=== PATIENT | male | born 1985 | race Caucasian/White ===

== ENCOUNTER 2021-08-30 19:08 | Emergency (ER) | payer MEDICAID, SELFPAY ==
[2021-08-30 20:19] VITALS: BP 152/78; PULSE 108; RESP 16; TEMP 36; O2SAT 97; BMI 25.1
--- NOTE | 2021-08-30 20:53 | RAD_ITS ---
INDICATION: chest pain EXAMINATION/TECHNIQUE: X-RAY - XR Chest 1 View COMPARISON: None. FINDINGS: LINES/DEVICES: None. LUNGS: Lung volumes are increased bilaterally with slight asymmetric elevation right hemidiaphragm compared to left. No appreciable pulmonary hyperlucency or interstitial changes to further suggesting emphysema. There is no pneumothorax. No airspace opacity or abnormal interstitial pattern. MEDIASTINUM AND CARDIOVASCULAR STRUCTURES: Normal size and contour of the cardiomediastinal silhouette. No evidence of pulmonary vascular congestion. BONES AND SOFT TISSUES: No abnormality within limits of the exam. RAD/Chest 1 View (Portable) IMPRESSION: 1. Increased lung volumes bilaterally with asymmetric elevation right hemidiaphragm compared to the left. Otherwise normal exam. Electronically Signed: Mike Tyler DO at 21:42 EDT Tel , Service support ,
--- NOTE | 2021-08-30 20:53 | EKG12_ITS ---
Test Reason : DYSRHYTHMIA Blood Pressure : / mmHG Vent. Rate : 101 BPM Atrial Rate : 101 BPM P-R Int : 120 ms QRS Dur : 082 ms QT Int : 348 ms P-R-T Axes : 067 060 063 degrees QTc Int : 451 ms Sinus tachycardia Nonspecific T wave abnormality Abnormal ECG Confirmed by ELINOR FISCHER, KRISSY ([id number]), content editor EDILIA AC ([id number]) on 09/04/2021 10:07:33 A M Referred By: BUD Confirmed By:JAVON ALDRICH MD
--- NOTE | 2021-08-30 20:58 | EDS_ITS ---
HPI History of Present Illness Chief Complaint: Anxiety Informant: patient Narrative Narrative: Patient reports 5 minutes chest pain 90 minutes prior to arrival. Reports increasing stress. Currently resolved. History of paroxysmal A. fib. He was on Xarelto for 90 days. Tobacco history. States family history uncles MIs in their 40s. Denies hypertension diabetes hypercholesterolemia. Denies recent travel surgeries or immobilizations. No history of PE or DVT. Denies any cough symptoms. Denies suicidal homicidal ideations. Currently back to normal. Prior similar symptoms: Yes PFSH PFSH Medical History Palpitations Home Medications NK 08/30/21 [History Last Taken Unknown] Allergy/AdvReac Type Severity Reaction Status Date / Time No Known Allergies Allergy Verified 08/30/21 19:09 Social History Smoking Status: Current every day smoker tobacco type: cigarettes ROS ROS ED Constitutional Constitutional ED: Denies chills, fever(s) or sweats Eyes Eyes: Denies change in vision ENT ENT ED: Denies dysphagia or sore throat Cardiovascular Cardiovascular: Reports chest pain; Denies leg edema, palpitations or racing heartbeat Respiratory/Chest Respiratory/Chest: Denies cough, dyspnea or dyspnea on exertion Gastrointestinal Gastrointestinal: Denies abdominal pain, diarrhea, nausea or vomiting Genitourinary Genitourinary ED: Denies dysuria, hematuria or urinary frequency Musculoskeletal Musculoskeletal: Denies back pain, extremity pain or neck pain Integumentary Denies rash or wounds Neurologic Neurologic: Denies headache(s), paresthesias or weakness EXAM Physical Exam Const Vital Signs: 08/30/21 20:19 08/30/21 21:21 Temperature 96.8 F L Temperature Source Temporal Pulse Rate 108 H 102 H Respiratory Rate 16 18 Blood Pressure 152/78 H Blood Pressure Mean 102 Pulse Ox 97 Oxygen Delivery Method Room Air Room Air Positive well nourished and well developed General Appearance ED: well developed and NAD HEENT Reports moist mucous membranes normocephalic and atraumatic Eyes PERRL, EOMs intact bilaterally and conjunctivae normal General Eye ED: Yes normal appearance of both eyes Neck no lymphadenopathy and supple General: Negative for tenderness Chest Wall Chest: Negative for tenderness Resp normal respiratory effort and normal air movement Effort and Inspection: symmetric chest movement; Negative for respiratory dis tress Cardio regular rate, regular rhythm and no murmurs Peripheral Pulses: pulses 2+ throughout GI normal to inspection, nondistended, normoactive bowel sounds and non-tender Palpation: Negative for guarding or rebound tenderness present Back/Spine no CVA tenderness and no thoracic nor lumbar tenderness Extremity normal to inspection General Extremety ED: Negative for edema or tenderness General Extremity: Negative for edema Neuro oriented x3 and no sensory deficits noted Sensorium / Orientation: awake and alert Skin no rashes or lesions noted and no wounds MDM MDM MDM Narrative Medical decision making narrative: Patient with 5-minute transient chest pains. EKG sinus rhythm no acute changes. Cardiac work-up troponin negative x2. Pot assium 3.2 orally replaced. Remained symptom-free throughout. Heart score is a 2. Patient slightly tachycardic denied any dyspnea symptoms for concerns for PE. Is given follow-up as an outpatient with return precautions. All questions were answered. Lab Data Attestation: I reviewed the patient's lab results. Labs: Laboratory Results - last 24 hr 08/30/21 08/30/21 08/30/21 21:10 21:10 23:10 WBC 8.7 RBC 4.90 Hgb 14.5 Hct 42.4 MCV 86.5 MCH 29.6 MCHC 34.2 RDW Std Deviation 39.2 RDW Coeff of Mata 12.5 Plt Count 384 MPV 8.2 Immature Gran % (Auto) 0.300 Neut % (Auto) 71.8 H Lymph % (Auto) 21.0 [place] % (Auto) 6.1 Eos % (Auto) 0.1 Baso % (Auto) 0.7 Absolute Neuts (auto) 6.3 Absolute Lymphs (auto) 1.83 Nucleated RBC % 0 Sodium 136 Potassium 3.2 L Chloride 103 Carbon Dioxide 28.0 Anion Gap 5 BUN 11 Creatinine 0.79 Estim Creat Clear Calc 141.65 Est GFR (MDRD) Af Amer 144 Est GFR (MDRD) Non-Af 119 BUN/Creatinine Ratio 13.9 Glucose 117 H Calcium 8.9 Troponin I High Sens 5 6 Radiography Chest X-Ray - ED: 1 View, Read by ED Physician and Read by Radiologist Diagnostic Testing: Clinical Impression(s) from Imaging Studies Chest X-Ray 08/30/21 20:53 IMPRESSION: 1. Increased lung volumes bilaterally with asymmetric elevation right hemidiaphragm compared to the left. Otherwise normal exam. Electronically Signed: Mike Tyler DO at 21:42 EDT Tel , Service support , EKG Initial EKG: Attestation: I personally reviewed and interpreted this EKG as follows: Comments: Sinus rate of 101, no ST or T wave changes. Discharge Plan Triage Chief Complaint: Anxiety ED Provider: Nahum Israel Dx/Rx/DC Orders Clinical Impression: Chest pain, Acute hypokalemia Instructions: ED Chest Pain, Uncertain Cause Prescriptions: No Action NK RF: 0 Primary Care Provider: Care Physician,No Primary Referrals: Kayla Recinos [NON-STAFF] - 3-5 Days Care Physician,No Primary [Primary Care Provider] - Disposition Disposition: Home, Self Care
[2021-08-30 21:20] LABS: Absolute Lymphocyte Count 1.83 X10^3/uL (0.83-4.51); Absolute Neutrophil Count 6.3 X10^3/uL (2.0-7.7); Basophil# 0.06 X10^3/uL; Basophil% 0.7 % (0-1); Eosinophil# 0.01 X10^3/uL; Eosinophils% 0.1 % (0-5); Hematocrit 42.4 % (40-54); Hemoglobin 14.5 g/dL (13.0-16.5); Lymphocyte # 1.83 X10^3/ul (0.83-4.51); Mean Corp Hgb Conc 34.2 g/dL (32-36); Mean Corpuscular Hgb 29.6 pg (27.0-32.0); Mean Corpuscular Volume 86.5 fL (80-94); Mean Platelet Vol. 8.2 fl (6.2-12.0); Monocyte# 0.53 X10^3/uL; Monocyte% 6.1 % (0-10); NRBC Flagged by Analyzer 0 % (0-5); Neutrophil # 6.27 X10^3/uL (2.7-7.7); Neutrophil % 71.8 % (47-70); Platelet Count 384 K/mm3 (150-450); RBC Distribution Width CV 12.5 % (11.6-14.6); RBC Distribution Width SD 39.2 fl (35.1-43.9); White Blood Count 8.7 K/mm3 (4.4-11.0)
[2021-08-30 21:21] VITALS: PULSE 102; RESP 18
[2021-08-30 21:39] LABS: Anion Gap 5 (5-15); BUN 11 mg/dL (7-18); BUN/Creat Ratio 13.9 RATIO (10-20); Calcium,Total 8.9 mg/dL (8.5-10.1); Chloride 103 mmol/L (98-107); Creatinine, Serum 0.79 mg/dL (0.70-1.30); EST Glomerular Filtration Rate 119 mL/min (>60); Est Glom Filt Rate - Afr Amer 144 mL/min (>60); Estimated Creatinine Clearance 141.65 ml/min; Glucose 117 mg/dL (74-106); Potassium 3.2 mmol/L (3.5-5.1); Sodium Level 136 mmol/L (136-145); Troponin-I HS 5 pg/mL (3.0-78.0)
[2021-08-30] MEDS: Potassium Chloride Oral Tablet 20 MEQ 40 MEQ PO (22:08)
[2021-08-30 23:29] LABS: Troponin-I HS 6 pg/mL (3.0-78.0)
[2021-08-31 00:14] VITALS: BP 146/68; PULSE 92; RESP 18; O2SAT 97
== END 2021-08-31 00:14 | disposition home or self-care (01) ==
PROVIDERS: Emergency Provider Emergency Medicine
DX: R07.9 Chest pain, unspecified (principal); E87.6 Hypokalemia; F41.9 Anxiety disorder, unspecified; F17.210 Nicotine dependence, cigarettes, uncomplicated
CPT/HCPCS: 71045; 80048; 84484; 85025; 93005; 99285; A4216

== ENCOUNTER 2021-09-01 01:51 | Emergency (ER) | payer MEDICAID, SELFPAY ==
[2021-09-01 01:55] VITALS: BP 123/99; PULSE 81; RESP 16; TEMP 36.1; O2SAT 100; BMI 21.7
--- NOTE | 2021-09-01 02:59 | EDS_ITS ---
HPI History of Present Illness Chief Complaint: General Illness Informant: patient Onset/Context/Timing Onset: Days Context: Gradual Onset Timing: Continuous Quality: Throbbing Location: Generalized Worsened by: Nothing Relieved by: Nothing Narrative Narrative: Patient presents with body swelling that has been getting worse over the past few days. Patient describes his pain is throbbing. Patient states he hurts everywhere. Patient states that his entire body hurts. Patient states nothing makes it better and nothing makes it worse. Patient denies any trauma or injury. Patient denies any fevers or chills. Patient denies any nausea or vomiting. Patient denies any shortness of breath or cough. Patient states he uses meth. Patient states his last use was approximately 3 days ago. [facility] Medical History Palpitations Medical History no medical history Home Medications NK 08/30/21 [History Last Taken Unknown] Allergy/AdvReac Type Severity Reaction Status Date / Time No Known Allergies Allergy Verified 08/30/21 19:09 Surgical History no surgical history Social History (Updated 09/01/21 @ 03:[address] Perico Ron DO) Smoking Status: Current every day smoker tobacco type: cigarettes substance use type: methamphetamine ROS ROS ED Constitutional Constitutional ED: Denies chills or fever(s) Eyes Eyes: Denies blurry vision or change in vision ENT ENT ED: Denies rhinorrhea or sore throat Cardiovascular Cardiovascular: Denies chest pain or palpitations Respiratory/Chest Respiratory/Chest: Denies cough or dyspnea Gastrointestinal Gastrointestinal: Denies nausea or vomiting Genitourinary Genitourinary ED: Denies dysuria or hematuria Musculoskeletal Musculoskeletal: Reports arthralgias, back pain and neck pain Integumentary Denies abscess or rash Neurologic Neurologic: Denies headache(s) or weakness Allergic/Immunologic Allergic/Immunologic ED: Denies mouth swelling or urticaria EXAM Physical Exam Const Vital Signs: 09/01/21 01:55 09/01/21 02:03 Temperature 97 F L Temperature Source Temporal Pulse Rate 81 Respiratory Rate 16 Respiratory Effort Normal Respiratory Pattern Normal Blood Pressure 123/99 H Blood Pressure Mean 107 Pulse Ox 100 Oxygen Delivery Method Room Air Positive well nourished and well developed General Appearance ED: well developed HEENT Reports moist mucous membranes Neck supple and no JVD Chest Wall inspection of chest normal Chest Narrative: There is tenderness to palpation across his chest. There is no bony crepitance or step-off. Resp normal respiratory effort and clear to auscultation bilaterally Cardio regular rate, regular rhythm and no murmurs GI normal to inspection, nondistended, normoactive bowel sounds and non-tender Palpation: soft Extremity normal to inspection General Extremety ED: Negative for edema or tenderness General Extremity: Negative for edema Neuro oriented x3, CN's II-XII intact bilaterally and no sensory deficits noted Sensorium / Orientation: alert Motor Exam: strength 5/5 throughout Psych mental status grossly normal Skin no rashes or lesions noted MDM MDM MDM Narrative Medical decision making narrative: Patient was given IV fluids and Toradol. CBC and basic metabolic profile were within normal limits. Patient was advised of his findings. Patient was instructed to drink plenty of fluids. Patient was instructed to take Tylenol or ibuprofen as needed for any aches or pain. Patient was instructed to follow-up with his primary care physician in 5 to 7 days. Patient was also given a referral for 180 for his methamphetamine abuse. Patient understood and was agreeable with the plan. All questions were answered. Lab Data Attestation: I reviewed the patient's lab results. Labs: Laboratory Results - last 24 hr 09/01/21 09/01/21 03:12 03:12 WBC 8.3 RBC 4.67 Hgb 13.9 Hct 40.9 MCV 87.6 MCH 29.8 MCHC 34.0 RDW Std Deviation 41.3 RDW Coeff of Mata 12.8 Plt Count 393 MPV 8.3 Immature Gran % (Auto) 0.200 Neut % (Auto) 55.6 Lymph % (Auto) 33.7 [place] % (Auto) 8.7 Eos % (Auto) 1.0 Baso % (Auto) 0.8 Absolute Neuts (auto) 4.6 Absolute Lymphs (auto) 2.80 Nucleated RBC % 0 Sodium 140 Potassium 3.9 Chloride 105 Carbon Dioxide 30.0 Anion Gap 5 BUN 14 Creatinine 0.72 Estim Creat Clear Calc 130.14 Est GFR (MDRD) Af Amer 160 Est GFR (MDRD) Non-Af 132 BUN/Creatinine Ratio 19.3 Glucose 99 Calcium 8.5 Discharge Plan Triage Chief Complaint: General Illness ED Provider: Perico Ron Dx/Rx/DC Orders Clinical Impression: Myalgia, Methamphetamine use Instructions: ED Drug Abuse, ED Myalgias Prescriptions: No Action NK RF: 0 Primary Care Provider: Care Physician,No Primary Referrals: Kayla Recinos [NON-STAFF] - 3-5 Days Care Physician,No Primary [Primary Care Provider] - [facility] [STAFF PHYSICIAN] - 3-5 Days Disposition Disposition: Home, Self Care
[2021-09-01 03:19] LABS: Absolute Neutrophil Count 4.6 X10^3/uL (2.0-7.7); Basophil# 0.07 X10^3/uL; Basophil% 0.8 % (0-1); Eosinophil# 0.08 X10^3/uL; Hematocrit 40.9 % (40-54); Hemoglobin 13.9 g/dL (13.0-16.5); Lymphocyte % 33.7 % (19-41); Mean Corpuscular Hgb 29.8 pg (27.0-32.0); Mean Corpuscular Volume 87.6 fL (80-94); Mean Platelet Vol. 8.3 fl (6.2-12.0); Monocyte# 0.72 X10^3/uL; Monocyte% 8.7 % (0-10); NRBC Flagged by Analyzer 0 % (0-5); Neutrophil # 4.62 X10^3/uL (2.7-7.7); Neutrophil % 55.6 % (47-70); Platelet Count 393 K/mm3 (150-450); RBC Distribution Width CV 12.8 % (11.6-14.6); RBC Distribution Width SD 41.3 fl (35.1-43.9); Red Blood Count 4.67 M/mm3 (4.6-6.2); White Blood Count 8.3 K/mm3 (4.4-11.0)
[2021-09-01 03:33] LABS: Anion Gap 5 (5-15); BUN 14 mg/dL (7-18); BUN/Creat Ratio 19.3 RATIO (10-20); Calcium,Total 8.5 mg/dL (8.5-10.1); Chloride 105 mmol/L (98-107); Creatinine, Serum 0.72 mg/dL (0.70-1.30); EST Glomerular Filtration Rate 132 mL/min (>60); Est Glom Filt Rate - Afr Amer 160 mL/min (>60); Estimated Creatinine Clearance 130.14 ml/min; Glucose 99 mg/dL (74-106); Potassium 3.9 mmol/L (3.5-5.1); Sodium Level 140 mmol/L (136-145)
[2021-09-01 03:48] VITALS: BP 122/60; PULSE 78; RESP 18
== END 2021-09-01 03:48 | disposition home or self-care (01) ==
PROVIDERS: Emergency Provider Emergency Medicine
DX: M79.10 Myalgia, unspecified site (principal); F15.90 Other stimulant use, unspecified, uncomplicated; F17.210 Nicotine dependence, cigarettes, uncomplicated
CPT/HCPCS: 80048; 85025; 99282; A4216